=== PATIENT | male | born 1990 | race Caucasian/White ===

== ENCOUNTER 2023-01-26 14:30 | Emergency (ER) | payer OTHER ==
[~2023-01-26] VITALS: Ht 180.3 cm; Wt 83.8 kg
[2023-01-26] MEDS ORDERED: CYMBALTA60 MG PO (14:43)
[2023-01-26] MEDS ORDERED: BENADRYL25 MG PO (14:44)
[2023-01-26 15:33] VITALS: BP 124/81
== END 2023-01-26 15:35 | disposition home or self-care (01) ==
LOC: ED 14:30
DX: S01.511A Laceration without foreign body of lip, initial encounter (principal); Y04.2XXA Assault by strike against or bumped into by another person, initial encounter; Z88.8 Allergy status to other drugs, medicaments and biological substances; Z79.899 Other long term (current) drug therapy
CPT/HCPCS: 40650; 99282-25